=== PATIENT | male | born 2000 | race Caucasian/White ===

== ENCOUNTER 2021-09-21 14:59 | Emergency (ER) | payer BC ==
[2021-09-21] MEDS ORDERED: ONDANSETRON 4 MG/2 ML VIAL ONE (15:25)
[2021-09-21] MEDS ORDERED: KETOROLAC 30 MG/ML INJ ONE (15:25)
[2021-09-21 15:28] LABS: Absolute Lymphocytes (CBC) 2.3 K/uL (0.7-4.9); Hematocrit 43.9 % (39.6-49.0); Lymphocytes % 23.2 % (15.3-44.8); RBC Red Blood Cell Count 4.99 M/uL (4.33-5.43)
[2021-09-21 15:44] LABS: Albumin 3.7 g/dL (3.4-5.0); Bilirubin Total 0.5 mg/dL (0.2-1.0); Potassium 3.8 mmol/L (3.5-5.1); Protein, Total 7.9 g/dL (6.4-8.2)
--- NOTE | 2021-09-21 15:44 | RAD REPORT ---
EXAM DESCRIPTION: CT - Stone Protocol - 09/21/2021 3:27 pm CLINICAL HISTORY: Abdominal pain. Left flank pain COMPARISON: None. TECHNIQUE: Computed axial tomography of the abdomen pelvis was obtained without oral or IV contrast. Lack of IV and oral contrast limits evaluation of solid organs, bowel, and vessels. Coronal reformat taj images were obtained and reviewed. All CT scans are performed using dose optimization technique as appropriate and may include automated exposure control or mA/KV adjustment according to patient size. FINDINGS: Tiny calculi within the right kidney. No hydronephrosis Left renal calculus is not seen. Mild left hydronephrosis. Portions of the left ureter are mildly dil ated. 1 millimeter calculus left UVJ. The liver, spleen, pancreas and adrenals appear grossly normal There is no evidence of diverticulitis. Calcification is present within the appendix. The proximal appendix is mildly dilated. The distal bill endix is normal caliber. No stranding within the adjacent fat. No ascites. IMPRESSION: 1 millimeter calculus left UVJ resulting in mild left hydronephrosis Calcification within the appendix. The proximal appendix is mildly dilated. The remainder of the appe ndix is normal caliber. Clinical correlation is needed see the patient has symptoms to suggest a mild appendicitis
[2021-09-21] MEDS ORDERED: TAMSULOSIN 0.4 MG SR CAP ONE (16:45)
[2021-09-21] MEDS ORDERED: MAGNESIUM SULFATE 1 gm IVPB 1 GM/100 ML BAG IV ONE (16:46)
[2021-09-21 17:26] LABS: Urine Blood 3+ (Negative); Urine Glucose Negative (Negative); Urine Protein Negative (Negative); Urine Specific Gravity 1.015 (1.005-1.030); Urine pH 6.5 (5.0-7.0)
--- NOTE | 2021-09-21 17:30 | ER ---
Nurse's Notes [facility] Name: Alessio Yates Age: 21 yrs Sex: Male : 2000 Arrival Date: 09/21/2021 Time: 15:02 Bed 10 Private MD: Diagnosis: Calculus of kidney with calculus of ureter Presentation: 09/21 15:08 Chief complaint: Patient states: left flank pain that began this morning around 1130, aa5 having difficulty urinating. Coronavirus screen: At this time, the client does not indicate any symptoms associated with coronavirus-19. Ebola Screen: No symptoms or risks identified at this time. Initial Sepsis Screen: Does the patient meet any 2 criteria? No. Patient's initial sepsis screen is negative. Does the patient have a suspected source of infection? No. Patient's initial sepsis screen is negative. Risk Assessment: Do you want to hurt yourself or someone else? Patient reports no desire to harm self or others. Onset of symptoms was September 21, 2021. 15:08 Method Of Arrival: Ambulatory aa5 15:08 Acuity: BETSY 3 aa5 Triage Assessment: 15:10 General: Appears uncomfortable, Behavior is calm, cooperative. Pain: Complains of pain aa5 in left flank Pain currently is 8 out of 10 on a pain scale. Neuro: Galdamez Agitation-Sedation Scale (RASS): 0 - Alert and Calm Level of Consciousness is awake, alert, obeys commands, Oriented to person, place, time, situation. Respiratory: Airway is patent Respiratory effort is even, unlabored, Respiratory pattern is regular, symmetrical. Derm: Skin is pink, warm \T\ dry. Historical: - Allergies: 15:09 No Known Allergies; aa5 - Home Meds: 15:09 None [Active]; aa5 - PMHx: 15:09 Kidney stone; aa5 - PSHx: 15:09 None; aa5 - Immunization history:: Adult Immunizations unknown. - Social history:: Smoking status: Patient denies any tobacco usage or history of. Screenin:55 Abuse screen: Denies injuries from another. Nutritional screening: No deficits noted. iw Tuberculosis screening: No symptoms or risk factors identified. Fall Risk None identified. Assessment: 17:15 General: Appears in no apparent distress. Behavior is calm, cooperative. Pain: iw Complains of pain in left flank and left lower quadrant. Neuro: Level of Consciousness is awake, alert, obeys commands, Oriented to person, place, time, situation, Moves all extremities. Full function. Cardiovascular: Patient's skin is warm and dry. Respiratory: Respiratory effort is even, unlabored. GI: Bowel sounds present X 4 quads. Abd is soft. : Reports pain in right flank(s). Derm: Skin is intact, is healthy with good turgor. Musculoskeletal: Range of motion: intact in all extremities. Vital Signs: 15:09 BP 139 / 80; Pulse 72; Resp 20 S; Temp 97.3(TE); Pulse Ox 99% on R/A; Weight 92.99 kg aa5 (R); Height 6 ft. 3 in. (190.50 cm) (R); Pain 8/10; 15:09 Body Mass Index 25.62 (92.99 kg, 190.50 cm) aa5 ED Course: 15:02 Patient arrived in ED. as 15:04 Quang Bruno MD is Attending Physician. kdr 15:04 Karishma Núñez FNP-C is PHCP. kb 15:08 Arm band placed on. aa5 15:09 Triage completed. aa5 15:15 Initial lab(s) drawn, by me, sent to lab. Inserted saline lock: 20 gauge in right aa5 forearm, using aseptic technique. Blood collected. 15:29 CT Stone Protocol In Process Unspecified. EDMS 16:52 Adriana Sherman, RN is Primary Nurse. iw 17:15 Patient has correct armband on for positive identification. iw 17:59 No provider procedures requiring assistance completed. IV discontinued, intact, iw bleeding controlled, No redness/swelling at site. Pressure dressing applied. Administered Medications: 15:22 Drug: Ketorolac 15 mg Route: IVP; Site: right forearm; aa5 18:19 Follow up: Response: No adverse reaction iw 15:22 Drug: Zofran (Ondansetron) 4 mg Route: IVP; Site: right forearm; aa5 15:45 Follow up: Response: No adverse reaction iw 16:52 Drug: Magnesium Sulfate 1 grams Route: IVPB; Infused Over: 1 hrs; Site: right wrist; iw 17:30 Follow up: IV Status: Completed infusion iw 16:52 Drug: Flomax (tamsulosin) 0.4 mg Route: PO; iw 17:15 Follow up: Response: No adverse reaction iw Medication: 17:15 VIS not applicable for this client. iw Outcome: 17:29 Discharge ordered by . shani 17:59 Discharged to home ambulatory. iw 17:59 Condition: good 17:59 Discharge instructions given to patient, Instructed on discharge instructions, follow up and referral plans. medication usage, Demonstrated understanding of instructions, follow-up care, medications, Prescriptions given X 2. 18:00 Patient left the ED. iw Signatures: Dispatcher [employer] EDMS Karishma Núñez, RADIAL ARM SAW OPERATOR-C RADIAL ARM SAW OPERATOR-Ckb Quang Bruno MD MD kdr Huyen Miranda as Adriana Sherman, MIKE RN iw Regina Shi RN RN aa5 Corrections: (The following items were deleted from the chart) 15:22 15:22 Zofran (Ondansetron) 4 mg IVP in right antecubital aa5 aa5 15:22 15:22 Ketorolac 15 mg IVP in right antecubital aa5 aa5
--- NOTE | 2021-09-21 17:30 | EDPHYS ---
Physician Documentation [facility] Name: Alessio Yates Age: 21 yrs Sex: Male : 2000 Arrival Date: 09/21/2021 Time: 15:02 Bed 10 Private MD: ED Physician Quang Bruno HPI: 09/21 17:46 This 21 yrs old Male presents to ER via Ambulatory with complaints of Possible Kidney kb Stone. 17:46 The patient complains of pain in the left flank. The pain radiates to the left lower kb quadrant. Onset: The symptoms/episode began/occurred at 11:30. Modifying factors: The symptoms are alleviated by nothing. the symptoms are aggravated by nothing. Associated signs and symptoms: Pertinent positives: difficulty urinating. Severity of pain: At its worst the pain was moderate in the emergency department the pain is unchanged. The patient has not experienced similar symptoms in the past. The patient has not recently seen a physician. Historical: - Allergies: 15:09 No Known Allergies; aa5 - Home Meds: 15:09 None [Active]; aa5 - PMHx: 15:09 Kidney stone; aa5 - PSHx: 15:09 None; aa5 - Immunization history:: Adult Immunizations unknown. - Social history:: Smoking status: Patient denies any tobacco usage or history of. ROS: 17:44 Constitutional: Negative for fever, chills, and weight loss. kb 17:44 : Positive for flank pain, difficulty urinating. 17:44 All other systems are negative. Exam: 17:44 Constitutional: This is a well developed, well nourished patient who is awake, alert, kb and in no acute distress. Head/Face: Normocephalic, atraumatic. ENT: Moist Mucous membranes Respiratory: Respirations even and unlabored. No increased work of breathing. Talking in full sentences Skin: Warm, dry with normal turgor. Normal color. MS/ Extremity: Pulses equal, no cyanosis. Neurovascular intact. Full, normal range of motion. Neuro: Awake and alert, GCS 15, oriented to person, place, time, and situation. Moves all extremities. Normal gait. Psych: Awake, alert, with orientation to person, place and time. Behavior, mood, and affect are within normal limits. 17:44 Abdomen/GI: Inspection: abdomen appears normal, Bowel sounds: normal, in all quadrants, Palpation: soft, in all quadrants, mild abdominal tenderness, in the left lower quadrant. 17:44 Back: CVA tenderness, that is moderate, is noted on the left. Vital Signs: 15:09 BP 139 / 80; Pulse 72; Resp 20 S; Temp 97.3(TE); Pulse Ox 99% on R/A; Weight 92.99 kg aa5 (R); Height 6 ft. 3 in. (190.50 cm) (R); Pain 8/10; 15:09 Body Mass Index 25.62 (92.99 kg, 190.50 cm) aa5 MDM: 15:08 Patient medically screened. kb 17:29 Data reviewed: vital signs, nurses notes. Data interpreted: Pulse oximetry: on room air kb is 99 %. Interpretation: normal. Counseling: I had a detailed discussion with the patient and/or guardian regarding: the historical points, exam findings, and any diagnostic results supporting the discharge/admit diagnosis, lab results, radiology results, the need for outpatient follow up, a urologist, to return to the emergency department if symptoms worsen or persist or if there are any questions or concerns that arise at home. 17:44 ED course: No RLQ pain or tenderness. No suspicion for appendicitis at this time. Pt kb educated to return for RLQ pain or any other concerns. . 06 15:08 Order name: CBC with Diff; Complete Time: 15:36 kb 09/21 15:08 Order name: CMP; Complete Time: 15:46 kb 09/21 15:08 Order name: CT Stone Protocol; Complete Time: 15:45 kb 09/21 17:26 Order name: Urine Dipstick-Ancillary; Complete Time: 17:29 EDMS 09/21 15:08 Order name: IV Saline Lock; Complete Time: 15:16 kb 09/21 15:08 Order name: Labs collected and sent; Complete Time: 15:16 kb 09/21 16:26 Order name: Urine Dipstick-Ancillary (obtain specimen); Complete Time: 17:21 kb Administered Medications: 15:22 Drug: Ketorolac 15 mg Route: IVP; Site: right forearm; aa5 18:19 Follow up: Response: No adverse reaction iw 15:22 Drug: Zofran (Ondansetron) 4 mg Route: IVP; Site: right forearm; aa5 15:45 Follow up: Response: No adverse reaction iw 16:52 Drug: Magnesium Sulfate 1 grams Route: IVPB; Infused Over: 1 hrs; Site: right wrist; iw 17:30 Follow up: IV Status: Completed infusion iw 16:52 Drug: Flomax (tamsulosin) 0.4 mg Route: PO; iw 17:15 Follow up: Response: No adverse reaction iw Disposition: 18:31 Co-signature as Attending Physician, Quang Bruno MD I agree with the assessment and kdr plan of care. Disposition Summary: 09/21/21 17:29 Discharge Ordered Location: Home kb Condition: Stable kb Diagnosis - Calculus of kidney with calculus of ureter kb Followup: kb - With: Emergency Department - When: As needed - Reason: Worsening of condition Followup: kb - With: Private Physician - When: 2 - 3 days - Reason: Recheck today's complaints, Continuance of care, Re-evaluation by your physician Discharge Instructions: - Discharge Summary Sheet kb - Kidney Stones, [id number] kb Forms: - Medication Reconciliation Form kb - Thank You Letter kb - Antibiotic Education kb - Prescription Opioid Use kb Prescriptions: - Flomax 0.4 mg Oral capsule - take 1 capsule by ORAL route once daily 1/2 hour following the same meal each kb day; 10 capsule; Refills: 0, Product Selection Permitted - Zofran 4 mg Oral Tablet - take 1 tablet by ORAL route every 6 hours As needed; 20 tablet; Refills: 0, kb Product Selection Permitted - Diclofenac Sodium 75 mg Oral tablet,delayed release (DR/EC) - take 1 tablet by ORAL route 2 times per day As needed; 30 tablet; Refills: 0, kb Product Selection Permitted Signatures: Dispatcher [employer] Karishma Roblero, SUNDARC Quang Brooks MD MD kdr Adriana Sherman, MIKE RN iw Regina Shi, RN RN aa5
[2021-09-21 18:05] VITALS: BP 139/80; TEMP 97.3; O2SAT 99
== END 2021-09-21 18:00 | disposition home or self-care (01) ==
LOC: ER 14:59
DX: N20.2 Calculus of kidney with calculus of ureter (principal); Z87.442 Personal history of urinary calculi
CPT/HCPCS: 96365; 85025; 36415; 81003; 80053; 76377; 74176; 96375; 99284; J3475; J2405